=== PATIENT | female | born 1995 | race Caucasian/White ===

== ENCOUNTER 2022-02-24 19:45 | Outpatient (CLI) | payer BC, SELFPAY ==
--- NOTE | 2022-03-10 08:58 | W.PM.SLEEP ---
Sleep Study Details Details Interpreting Provider: Patrick Hogue MD Date of Sleep Study: 02/24/22 Sleep Study Details: STUDY TYPE:? Home ? BMI:? 37.6 ORDERING PROVIDER:? Tae INDICATION:? Concerns about sleep apnea ? SLEEP SUMMARY:? 486.8 minutes monitored RESPIRATORY SUMMARY:? AHI 3.9, supine AHI 4.3, right lateral AHI 1.7 Low oxygen 88 Snoring 0.1% PERIODIC LIMB MOVEMENTS OF SLEEP:? Not recorded CARDIAC:? Range 54-104, mean 75.5 IMPRESSION:? This study does not demonstrate clinically significant obstructive sleep apnea RECOMMENDATION: If sleep disorder is suspected then an in-lab study may be indicated.
--- NOTE | 2022-03-25 13:16 | P.SLS_ITS ---
Sleep Study Details Details Interpreting Provider: Patrick Hogue MD Date of Sleep Study: 02/24/22 Sleep Study Details: STUDY TYPE:? Home ? BMI:? 37.6 ORDERING PROVIDER:? Tae INDICATION:? Concerns about sleep apnea ? SLEEP SUMMARY:? 486 minutes RESPIRATORY SUMMARY:? AHI 3.9, supine AHI 4.3, right lateral AHI 1.7 Low oxygen 88 Snoring 0.1% PERIODIC LIMB MOVEMENTS OF SLEEP:? Not recorded CARDIAC:? 54-104, mean 75.5 IMPRESSION:? This study does not demonstrate clinically significant obstructive sleep apnea RECOMMENDATION: If sleep disorder is strongly suspected would recommend an in- lab study followed by a multiple sleep latency test
== END 2022-02-24 19:46 | disposition home or self-care (01) ==
LOC: SLEEP 19:46
PROVIDERS: PCP Family Medicine; Visit Provider Family Medicine
DX: R40.0 Somnolence (principal)
CPT/HCPCS: 95806

== ENCOUNTER 2022-04-16 15:37 | Outpatient (CLI) | payer BC, SELFPAY ==
--- NOTE | 2022-04-16 16:00 | CRLHL7_ITS ---
For Patients: As a result of the Century Cures Act, medical imaging exams and procedure reports are released immediately into your electronic medical record. You may view this report before your referring provider. If you have questions, please contact your health care provider. Indication: Sinusitis. Technique: Noncontrast axial CT of the paranasal sinuses with coronal reformats are provided. No comparisons. Findings: The visualized paranasal sinuses are clear. The ostiomeatal complexes are patent bilaterally. Incidental bilateral jacquie bullosa. The visualized intraorbital contents appear within normal limits. Impression: Unremarkable CT of the paranasal sinuses. Please note that all CT scans at this facility use dose modulation, iterative reconstruction, and/or weight-based dosing when appropriate to reduce radiation dose to as low as reasonably achievable. Dictated by Alejandro Polk MD @ 04/16/2022 5:26:34 PM (Electronically Signed)
== END 2022-04-16 15:38 | disposition home or self-care (01) ==
LOC: CT 15:38
PROVIDERS: PCP Family Medicine; Visit Provider Otolaryngology
DX: J32.9 Chronic sinusitis, unspecified (principal)
CPT/HCPCS: 70486

== ENCOUNTER 2022-06-15 15:36 | Outpatient (CLI) | payer BC, SELFPAY | END 2022-06-15 15:37 | disposition home or self-care (01) | PROVIDERS: PCP Family Medicine; Visit Provider Family Medicine | DX: Z01.818 Encounter for other preprocedural examination (principal) | CPT/HCPCS: 80048; 85025 ==

== ENCOUNTER 2022-07-03 08:43 | Day surgery (SDC) | payer BC, SELFPAY ==
[2022-07-03] VITALS (12 sets, daily range): BP systolic 124–135; BP diastolic 74–86; PULSE 83–107; RESP 14–24; TEMP 36.2–36.9; O2SAT 95–100; BMI 38.1
[2022-07-03] MEDS: OXYMETAZOLINE 0.05% NASAL SPRAY 2 SPRAY NOSTRIL-B (08:22)
[2022-07-03] MEDS: LACTATED RINGERS 1000 ML 1,000 ML 100 ML IV (08:50)
[2022-07-03 09:07] LABS: Ur HCG Qualitative* Negative (Negative)
[2022-07-03] MEDS: SODIUM CHLORIDE 0.9 % (FLUSH) 10 ML SYRINGE IVF (09:25)
[2022-07-03] MEDS: COCAINE HCL 4 % 4 ML SOLUTION NOSTRIL-B (09:52)
[2022-07-03] MEDS: AYR SALINE NASAL GEL 1 APPLIC NOSTRIL-B (09:52)
[2022-07-03] MEDS: BUPIVACAINE 0.5 %/EPI 1:200K 2.5 ML INJECTION (09:52)
[2022-07-03] MEDS: BUPIVACAINE 0.5%/EPINEPHRINE 0.9 MG (30.9 ML) INJECTION (09:56)
[2022-07-03] MEDS: MUPIROCIN 1 GM PACKET 1 APPLIC TOPICAL (09:57)
--- NOTE | 2022-07-03 10:05 | W.ANESCHARGE ---
Anesthesia Charges Start Date/Time Anesthesia Start Date: 07/03/22 Anesthesia Start Time: 09:33 Stop Date/Time Anesthesia Stop Date: 07/03/22 Anesthesia Stop Time: 10:09
--- NOTE | 2022-07-03 10:09 | W.ANESCHARGE ---
Anesthesia Charges Start Date/Time Anesthesia Start Date: 07/03/22 Anesthesia Start Time: 09:33 Stop Date/Time Anesthesia Stop Date: 07/03/22 Anesthesia Stop Time: 10:09
[2022-07-03] MEDS: IBUPROFEN 400 MG TABLET PO (10:50)
[2022-07-03] MEDS: OXYCODONE 5 MG TABLET PO (10:53)
--- NOTE | 2022-07-03 11:14 | W.PM.ENTPROC ---
Procedure Note Date of procedure: 07/03/22 Procedure: Preoperative diagnosis nasal headache deviated septum nasal obstruction inferior turbinate hypertrophy postoperative diagnosis same Procedure nasal septoplasty, submucous partial resection inferior turbinates, endoscopic partial resection right middle turbinate jacquie bullosa Procedure reads under general endotracheal anesthesia patient was prepped draped usual fashion nose decongested with cocaine pledgets and injected. I was able to elevate mucosa over the right area 3 septal deflection on either side of the septal bone and remedial eyes this piece of bone. Was 1st cut with turbinate scissors. The flap was laid back down. A stab incision was made in the anterior of the right inferior turbinate a tunnel created with a [place] dissector. A conservative anterior submucous resection was performed the Coblation was used to cauterize intramurally more posteriorly along the inferior 10%. This was repeated on the left side in identical fashion. The right middle turbinate jacquie was addressed. The 0 degree scope was available for visualization. An incision was made in the mucosa and a tunnel elevated with a [place] dissector. I then infracture the jacquie bone and crushed the remainder of the turbinate. This effectively narrow the turbinate by about 50%. The left middle turbinate was simply crushed. Merocel pack soaked in Bactroban was placed on each side of the nose. The patient procedure well was taken recovery in satisfactory condition. Blood loss less than 50 mL. Surgeon: Patrick Hogue MD
== END 2022-07-03 12:02 | disposition home or self-care (01) ==
LOC: OR 08:44
PROVIDERS: PCP Family Medicine; Visit Provider Otolaryngology
PROC: (CPT 31231; principal; 2022-07-03 09:45)
DX: J34.2 Deviated nasal septum (principal); J34.3 Hypertrophy of nasal turbinates; R51.9 Headache, unspecified
CPT/HCPCS: 30520; 30140; 31240; 160; 81025; A9270; J0330; J1100; J2250; J2405; J2704; J3010; J3490; J7120

== ENCOUNTER 2023-10-19 12:26 | Emergency (ER) | payer BC, SELFPAY ==
[2023-10-19 12:35] VITALS: BP 127/82; PULSE 97; RESP 18; TEMP 35.8; O2SAT 99; BMI 37.6
--- NOTE | 2023-10-19 12:56 | ED.GENADULT ---
HPI - General Adult General Chief complaint: Nausea/Vomiting Stated complaint: vomiting, dizziness, tingling in feet Time Seen by Provider: 10/19/23 12:28 History of Present Illness HPI narrative: has not been feeling good, is prediabetic. today blood sugar was 62 at work, nam passed out, did buy some OTC glucose tablets and drank a pop. has been getting bad sweats, dizzy, nausea, feet red and losing circulation. vomitted in waiting room. sees dr. garcia. has not talked to him in the last month about this but has appointment with him tomorrow. 28-year-old woman presenting to the emergency department with concern of syncope but also just feeling generally unwell and weak over the last couple of weeks. She notes herself to be prediabetic. Has been carefully monitoring her blood sugars probably checking around 3 maybe 4 times a day. This is often in the morning where she is low in 50 she says. She checks partly because her mother is diabetic. She has been feeling generally weak, shaky in somewhat nauseated over the last couple of weeks. Today was sitting at work got to feeling hot and diaphoretic and then nauseated and went the bathroom to vomit. Her boss I believe was attending to her. She passed out she thinks for about 10 seconds following this emesis. Further questioning reveals long history of gastrointestinal problems weeks for couple of years. Has had extensive evaluation apparently with [facility]. there were some polyps noted on an upper endoscopy. History does show GERD and esophageal dysmotility in diagnosis otherwise. Lately also her feet have been looking redder or feeling like she is losing circulation this is bilateral. She notes that bilaterally also tends to swell quite a bit in her leg she feels. Does spend the majority of her work day on her feet. She says she always feels thirsty and has been trying to hydrate with water or Pedialyte. She thinks she feels like this because her blood sugar is low but also if she tries to eat more sugar she becomes more nauseated and crampy. Has an appointment with primary care provider in 2 days to discuss some of this. She feels particularly bad when she would go to drink alcohol. Other concerns include dry skin or deep cracks in her skin indicating the callused areas. She does pumice daily She admits that has been urinating maybe 10 times at night but only small amount out. No dysuria apparently. She is just concerned that should be evaluated more generally and for diabetes. Further questions about diet and other lifestyle -- does work long hours often 16 hour shifts. Does not get much sleep usually 3-4 hours she says she averages. Often will go good portions the day without eating. Related Data Home Medications ?Medication ?Instructions ?Recorded ?Confirmed etonogestrel 68 mg subdermal 1 implant subdermal ONCE 02/02/22 01/12/23 implant (Nexplanon) omeprazole 20 mg capsule,delayed 20 mg PO QDAY 02/02/22 01/12/23 release Previous Rx's ?Medication ?Instructions ?Recorded azelastine 137 mcg (0.1 %) nasal 1 spray intranasal BID #30 mL 10/13/23 spray Allergies Allergy/AdvReac Type Severity Reaction Status Date / Time penicillin V Allergy Severe Gastrointestinal Verified 01/12/23 09:20 Upset Review of Systems Status of ROS: Reports: 6 or more systems reviewed and unremarkable except as noted in History and below PFSH FOR[facility] Medical History Allergic rhinitis ?J30.9 - Allergic rhinitis, unspecified (ICD-10) Obsessive-compulsive disorder (04/29/14) ?F42.9 - Obsessive-compulsive disorder, unspecified (ICD-10) Major depressive disorder, single episode, moderate (05/11/16) ?F32.1 - Major depressive disorder, single episode, moderate (ICD-10) Esophageal dysmotility ?K22.4 - Dyskinesia of esophagus (ICD-10) GERD (gastroesophageal reflux disease) ?K21.9 - Gastro-esophageal reflux disease without esophagitis (ICD-10) Daytime somnolence ?R40.0 - Somnolence (ICD-10) Surgical History History of hip surgery ?Z98.890 - Other specified postprocedural states (ICD-10) Hx of elbow surgery ?Z98.890 - Other specified postprocedural states (ICD-10) Family History Father Obstructive sleep apnea Melanoma Mother Diabetes Social History Narrative: Single, no kids, 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 NAD. Seems a little fatigued. Head is atraumatic. Cranial nerves 2-12 are intact. Pupils are equal in briskly reactive accommodating. Lungs are clear. Skin is warm and dry without rash. She appears well-perfused peripherally. Toes are little pink. There is trace dependent edema in the lower extremities. Prominent heel calluses and MTP calluses. Both with some cracks in these calluses. No inflammatory changes otherwise. Has a large scar on the right left forearm. Tattoos on bilateral forearms and left posterior shoulder area. Heart in elevated rate but regular rhythm without murmur or gallop appreciated. Abdomen is overweight soft nontender. Oropharynx is moist without erythema. Const: Vital Signs, click to edit/add: Vital Signs - 24 hr 10/19/23 12:35 10/19/23 13:27 10/19/23 14:21 Temperature 96.4 F L Pulse Rate [Pulse Oximeter] 97 Pulse Rate [orthos tatic lying] 97 Pulse Rate [orthos tatic sitting] 105 H Pulse Rate [orthos tatic standing] 107 H Respiratory Rate 18 Blood Pressure [Ri ght Upper Arm] 127/82 Blood Pressure [or thostatic lying] 133/88 Blood Pressure [or thostatic sitting] 144/95 H Blood Pressure [or thostatic standing ] 135/88 Pulse Oximetry 99 98 Oxygen Delivery Me thod Room Air 10/19/23 14:59 Temperature Pulse Rate [Pulse Oximeter] 99 Pulse Rate [orthos tatic lying] Pulse Rate [orthos tatic sitting] Pulse Rate [orthos tatic standing] Respiratory Rate 16 Blood Pressure [Ri ght Upper Arm] 127/63 Blood Pressure [or thostatic lying] Blood Pressure [or thostatic sitting] Blood Pressure [or thostatic standing ] Pulse Oximetry 99 Oxygen Delivery Me thod Room Air Documenting provider has reviewed patient's vital signs: yes Course Vital Signs Vital signs: Initial Vital Signs Temperature 96.4 F L 10/19/23 12:35 Temperature Source Temporal Artery Scan 10/19/23 12:35 Pulse Rate 97 10/19/23 12:35 Respiratory Rate 18 10/19/23 12:35 Blood Pressure 127/82 10/19/23 12:35 Blood Pressure Mean 97 10/19/23 12:35 Pulse Oximetry 99 10/19/23 12:35 Oxygen Delivery Method Room Air 10/19/23 12:35 Vital Signs Temperature 96.4 F L 10/19/23 12:35 Pulse Rate 97 10/19/23 12:35 Respiratory Rate 18 10/19/23 12:35 Blood Pressure 127/82 10/19/23 12:35 Pulse Oximetry 99 10/19/23 12:35 Oxygen Delivery Method Room Air 10/19/23 12:35 Temperature 96.4 F L 10/19/23 12:35 Pulse Rate 99 10/19/23 14:59 Respiratory Rate 16 10/19/23 14:59 Blood Pressure 127/63 10/19/23 14:59 Pulse Oximetry 99 10/19/23 14:59 Oxygen Delivery Method Room Air 10/19/23 14:59 Medications Administered Medications: Discontinued Medications Generic Name Dose Route Start Last Admin Trade Name Juanitoq PRN Reason Stop Dose Admin Sodium Chloride 1,000 mls @ 1,000 mls/hr 10/19/23 13:16 10/19/23 15:00 0.9 % Sodium Chloride 1000 Ml IV 10/19/23 14:15 Infused .Q1H ONE Infusion Medical Decision Making [facility] Narrative Medical decision making narrative: Would want to make sure she does not have a urinary tract infection. Frequency might be simply a consequence of her pushing fluids so as well. Can check basic labs. Would screen also for COVID. Monitor on traffic monitor specialist. EKG for potential arrhythmia here. Does sound to have been a vasovagal event. Will collect labs also although in anticipation of visit with primary care provider soon. Hopefully these can be helpful for the visit. Does not have clear Raynaud's. Has not had out of control diabetes to the point that would suggest peripheral neuropathy. Consider checking vitamin levels as well due to generalized fatigue. Fatigue though might be related to being over worked and poor sleep. Does try to supplement with probiotics and variety of vitamins. Labs are reassuring. A major question was whether not diagnosis of diabetes can be made. I would say she does not appear to have diabetes from evaluation here today - did hemoglobin A1c as well considering outpatient follow-up. She did receive IV hydration here in the emergency department and otherwise seems to have more energy; looks to be feeling better. CRP was slightly elevated. Have not done an ESR. I suppose some inflammatory or rheumatological condition could explain these chronic symptoms. Most likely this was a vasovagal reaction at least contributing to the syncope. Regarding a number of other symptoms, have only just started workup here. Hopefully this initial laboratory evaluation can be beneficial to primary care. See patient discharge plan for further discussion Medical Records Medical records reviewed: Yes I reviewed the patient's medical records Lab Data Lab results reviewed: Yes I reviewed the patient's lab results Labs: Lab Results 10/19/23 10/19/23 10/19/23 Range/Units 13:17 13:40 13:44 WBC 8.98 (4.50-11.00) K/uL RBC 4.73 (4.00-5.20) m/uL Hgb 14.5 (12.0-16.0) gm/dL Hct 44.5 (33.0-51.0) % MCV 94 (80-100) fL MCH 31 (26-34) pg MCHC 33 (32-36) gm/dL RDW Coeff of Paula 11.8 (11.5-15.5) % Plt Count 311 (140-440) K/uL Neut % (Auto) 58.8 (42.0-72.0) % Lymph % (Auto) 28.5 (20-44) % Hendricks % (Auto) 10.6 (0.0-11.0) % Eos % (Auto) 1.3 (0.0-7.0) % Baso % (Auto) 0.6 (0.0-3.0) % Neut # (Auto) 5.28 (1.7-7.0) K/uL Lymph # (Auto) 2.56 (0.90-2.90) K/uL Hendricks # (Auto) 1.00 H (0.00-0.90) K/UL Eos # (Auto) 0.12 (0.00-0.50) K/uL Baso # (Auto) 0.05 (0.00-0.30) K/uL Abs Immat Gran (auto) 0.02 (0.00-0.30) K/uL Imm/Tot Granulo (auto) 0.2 % Sodium 137 (135-149) mmol/L Potassium 4.2 (3.6-5.1) mmol/L Chloride 103 (96-114) mmol/L Carbon Dioxide 27 (20-32) mmol/L Anion Gap 7 (7-15) mEq/L BUN 20 (5-24) mg/dL Creatinine 0.8 (0.5-1.5) mg/dL Estimated Creat Clear 102.72 Estimated GFR 104 ml/min Glucose 79 (60-115) mg/dL Hemoglobin A1c 4.9 (0-5.6) % Lactate 1.0 (0.5-1.9) mmol/L Calcium 9.5 (8.4-10.6) mg/dL Magnesium 2.2 (1.5-2.6) mg/dL Total Bilirubin 0.9 (0.1-1.5) mg/dL Direct Bilirubin 0.3 (0.0-0.5) mg/dL AST 25 (12-35) U/L ALT 19 (4-35) U/L Alkaline Phosphatase 96 (40-150) U/L C-Reactive Protein 1.6 H (0.5-1.0) mg/dL NT-Pro-B Natriuret Pep < 20 pg/mL Total Protein 7.6 (6.0-8.3) g/dL Albumin 4.7 (3.3-5.0) g/dL 25-OH Vitamin D Total 42 (30-80) ng/mL TSH 0.946 (0.270-4.20) uIU/mL Urine Color Yellow (Yellow) Urine Appearance Slightly Cloudy A (Clear) Urine pH 6.5 (5.0-8.5) Ur Specific Valders 1.025 (1.000-1.030) Urine Protein Negative (Negative) Urine Glucose (UA) Negative (Negative) Urine Ketones Trace A (Negative) Urine Blood Negative (Negative) Urine Nitrite Negative (Negative) Urine Bilirubin Negative (Negative) Urine Urobilinogen 1.0 (0.2-1.0) Ur Leukocyte Esterase Trace A (Negative) Urine RBC 0-2 (0-2) Urine WBC 0-2 (0-5) Ur Squamous Epith Cells Few (None-Few) Urine Bacteria None (None) SARS-CoV-2 (PCR) Negative SARS-CoV-2 (Negative) Influenza Type A (PCR) Negative PCR FLU A (Negative) Influenza Type B (PCR) Negative PCR FLU B (Negative) Lab Acknowledgement POC Troponin I 0.00 L (0.01-0.04) ng/ml 10/19/23 10/19/23 Range/Units 14:59 15:33 WBC (4.50-11.00) K/uL RBC (4.00-5.20) m/uL Hgb (12.0-16.0) gm/dL Hct (33.0-51.0) % MCV (80-100) fL MCH (26-34) pg MCHC (32-36) gm/dL RDW Coeff of Paula (11.5-15.5) % Plt Count (140-440) K/uL Neut % (Auto) (42.0-72.0) % Lymph % (Auto) (20-44) % Hendricks % (Auto) (0.0-11.0) % Eos % (Auto) (0.0-7.0) % Baso % (Auto) (0.0-3.0) % Neut # (Auto) (1.7-7.0) K/uL Lymph # (Auto) (0.90-2.90) K/uL Hendricks # (Auto) (0.00-0.90) K/UL Eos # (Auto) (0.00-0.50) K/uL Baso # (Auto) (0.00-0.30) K/uL Abs Immat Gran (auto) (0.00-0.30) K/uL Imm/Tot Granulo (auto) % Sodium (135-149) mmol/L Potassium (3.6-5.1) mmol/L Chloride (96-114) mmol/L Carbon Dioxide (20-32) mmol/L Anion Gap (7-15) mEq/L BUN (5-24) mg/dL Creatinine (0.5-1.5) mg/dL Estimated Creat Clear Estimated GFR ml/min Glucose (60-115) mg/dL Hemoglobin A1c (0-5.6) % Lactate (0.5-1.9) mmol/L Calcium (8.4-10.6) mg/dL Magnesium (1.5-2.6) mg/dL Total Bilirubin (0.1-1.5) mg/dL Direct Bilirubin (0.0-0.5) mg/dL AST (12-35) U/L ALT (4-35) U/L Alkaline Phosphatase (40-150) U/L C-Reactive Protein (0.5-1.0) mg/dL NT-Pro-B Natriuret Pep pg/mL Total Protein (6.0-8.3) g/dL Albumin (3.3-5.0) g/dL 25-OH Vitamin D Total (30-80) ng/mL TSH (0.270-4.20) uIU/mL Urine Color (Yellow) Urine Appearance (Clear) Urine pH (5.0-8.5) Ur Specific Valders (1.000-1.030) Urine Protein (Negative) Urine Glucose (UA) (Negative) Urine Ketones (Negative) Urine Blood (Negative) Urine Nitrite (Negative) Urine Bilirubin (Negative) Urine Urobilinogen (0.2-1.0) Ur Leukocyte Esterase (Negative) Urine RBC (0-2) Urine WBC (0-5) Ur Squamous Epith Cells (None-Few) Urine Bacteria (None) SARS-CoV-2 (PCR) (Negative) Influenza Type A (PCR) (Negative) Influenza Type B (PCR) (Negative) Lab Acknowledgement Test Added Test Added POC Troponin I (0.01-0.04) ng/ml Discharge Plan Discharge Clinical Impression: Fatigue, Malaise, Vasovagal syncope Patient Disposition: Home w/ Parent or Adult Condition: Improved Additional Instructions: There are some vitamin levels still pending. You can see this in your medical record and/or follow this up in primary care clinic. It would be a good idea to begin keeping a careful diet diary of everything you eat and drink and when. Of course the amount of sleep you are getting is not enough and will result in you feeling unwell. Would be a good idea to get in a little heart pumping exercise daily. I understand you are on your feet persistently but getting your heart rate up is important as well. This would probably help your circulation as well Need quality and regular sleep, eat quality food and avoid simple carbohydrates. Perhaps some input by alternative medicine specifically Thai medicine might be helpful for you. Continue to stay well-hydrated. I think today you had a vasovagal event and while the reasons for your nausea might be less clear, I think that the vomiting is a reason for the syncope. Prescriptions: No Action Nexplanon 68 mg implant 1 implant subdermal ONCE Rx Instructions: as a single dose omeprazole 20 mg capsule,delayed release(DR/EC) 20 mg PO QDAY azelastine 137 mcg (0.1 %) spray,non-aerosol 1 spray intranasal BID Qty: 30 0RF Rx Instructions: administer into each nostril Follow Up/Referrals: Julius Garcia MD [Primary Care Provider] - Stand Alone Forms: [employer] Info Instructions
[2023-10-19 13:27] VITALS: BP 133/88; BP 135/88; BP 144/95; PULSE 105; PULSE 107; PULSE 97
[2023-10-19 13:39] LABS: Appearance Urine Slightly Cloudy (Clear); Bilirubin Urine Negative (Negative); Blood Urine Negative (Negative); Color Urine Yellow (Yellow); Glucose Urine Negative (Negative); Ketones Urine Trace (Negative); Leukocyte Esterase Urine Trace (Negative); Nitrite Urine Negative (Negative); Protein Urine Negative (Negative); Specific Gravity Urine 1.025 (1.000-1.030); pH Urine 6.5 (5.0-8.5)
[2023-10-19 13:44] LABS: RBC Urine 0-2 (0-2); Squamous Epithelial Cell Urine Few (None-Few); WBC Urine 0-2 (0-5)
[2023-10-19 13:54] LABS: Basophils Absolute Auto 0.05 K/uL (0.00-0.30); Basophils Percent Auto 0.6 % (0.0-3.0); Eosinophils Absolute Auto 0.12 K/uL (0.00-0.50); Eosinophils Percent Auto 1.3 % (0.0-7.0); Hematocrit 44.5 % (33.0-51.0); Hemoglobin* 14.5 gm/dL (12.0-16.0); Immature Granulocytes Abs Auto 0.02 K/uL (0.00-0.30); Immature Granulocytes Pct Auto 0.2 %; Lymphocytes Absolute Auto 2.56 K/uL (0.90-2.90); Lymphocytes Percent Auto 28.5 % (20-44); Mean Corpuscular HGB Conc 33 gm/dL (32-36); Mean Corpuscular Hemoglobin 31 pg (26-34); Mean Corpuscular Volume 94 fL (80-100); Monocytes Percent Auto 10.6 % (0.0-11.0); Neutrophils Absolute Auto 5.28 K/uL (1.7-7.0); Neutrophils Percent Auto 58.8 % (42.0-72.0); Platelet Count* 311 K/uL (140-440); RDW Coefficient of Variation % 11.8 % (11.5-15.5); Red Blood Count 4.73 m/uL (4.00-5.20); White Blood Count* 8.98 K/uL (4.50-11.00)
[2023-10-19 13:56] LABS: Slide Review Reflex No
--- OUTSIDE RECORDS SUMMARY | 2023-10-19 13:57 | XMS_ITS | Referral Summary ---
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 03/16/2019 Active ibuprofen 600 mg oral tablet Take 600 mg by mouth. 09/13/2019 Active Active Problems Problem Noted Date Diagnosed Date Gastroesophageal reflux disease without esophagi tis 06/18/2020 Overview: Body mass index is 37.59 kg/m??. Social History Tobacco Use Types Packs/Day Years Used Date Smoking Tobacco: Former Smokeless Tobacco: Never Alcohol Use Standard Drinks/Week Comments Yes 6 (1 standard drink = 0.6 oz pur e alcohol) Sex and Gender Information Value Date Recorded Sex Assigned at Not on file Gender Identity Not on file Sexual Orientation Not on file Last Filed Vital Signs Vital Sign Reading Time Taken Comments Blood Pressure 130/85 07/22/2021 10:54 AM CDT Pulse 97 07/22/2021 10:54 AM CDT Temperature 36.4 ??C (97.6 ??F) 07/22/2021 1 0:54 AM CDT Respiratory Rate 20 07/22/2021 10:5 4 AM CDT Oxygen Saturation 100% 07/22/2021 10: 54 AM CDT Inhaled Oxygen Concentration - - Weight 117.7 kg (259 lb 7.7 oz) 08/01/2020 9:37 AM CDT Height 170.2 cm (5' 7) 08/01/2020 9:37 AM CDT Body Mass Index 40.64 08/01/2020 9:37 AM CDT Plan of Treatment Not on file Care Teams Die Cutting Machine Operator Relationship Specialty Start Date End Date Chino Dimas [address] [facility] [place] [address] PCP - General 06/18/20
--- OUTSIDE RECORDS SUMMARY | 2023-10-19 13:57 | XMS_ITS | Clinical Summary ---
Author Organization [facility] Address [place], [place] [address] Care Team Providers Care Rn Field Case Manager Name Role Phone Chino Dimas MD Primary Care Provider Allergies Active Allergy Reactions Criticality Noted Date Comments Penicillins Vomiting 09/16/2022 Medications Medication Sig Dispensed Refills Start Date End Date Status ondansetron (ZOFRAN) 4 mg tablet TAKE 1 TO 2 TABLETS BY MOUTH EVERY 8 HOURS NEEDED FOR NAUSEA 07/28/2021 Active pantoprazole (PROTONIX) 40 mg delayed-release tablet Take 40 mg by mouth two times daily. 08/21/2021 Active Hospital, Clinic, or Other Facility Administered Medication Ordered Dose Route Frequency Start Date End Date Status etonogestrel subdermal implant (NEXPLANON) 1 EachIndications:Nexplanon insertion 1 Each Sdrm Q 3 YEARS 03/16/2019 Active Active Problems Problem Noted Date Diagnosed Date Depression, major, single episode, moderate /08/[address] 01/15/2016 Overview: placed 05/30/15 Obsessive compulsive disorder 04/29/2014 Dysmenorrhea 10/08/2010 Immunizations Name Administration Dates Next Due Hepatitis A (Peds) 10/06/2011,10/08/2010 Hepatitis B (Peds) 06/26/1997,1996, 997 Human Papilloma Virus Vaccine 12/31/2011, 011,10/08/2010 Inactivated Polio Vaccine 07/29/2001,04/10/1998, 1996,1996 Influenza, IIV3 (Age 6-35 mos) 12/25/2008 Influenza, IIV3 (Age >=3 years) 03/31/2012,12/16 Influenza, IIV4 02/24/2018,01/15/2016,12/26/2013 MMR 06/23/2004,04/10/1998 Meningococcal Vaccine (Menveo) 12/26/2013 Td (Age >=7 Years) 03/14/2019 Tdap 09/17/2008 Varicella Vaccine 09/17/2008,10/05/1997 Family History Medical History Relation Name Comments Asthma Brother 2 Good Health Father Diabetes Mother Relation Name Status Comments Brother 1 Alive Brother 2 Father Alive Mother Alive Social History Tobacco Use Types Packs/Day Years Used Date Smoking Tobacco: Former Cigarettes 0.3 4.6 0 03/08/2013 - 10/12/2017 Smokeless Tobacco: Never Tobacco Cessation:Counseling Given: Yes Comments:2-3 per day Alcohol Use Standard Drinks/Week Comments Yes 6 (1 standard drink = 0.6 oz pur e alcohol) sometimes PHQ-2 Answer Date Recorded PHQ-2 TOTAL SCORE 4 03/25/2020 Social Connections Answer Date Recorded Frequency of Communication with Friends and Fami ly Not on file 03/08/2021 Financial Resource Strain Answer Date R ecorded Difficulty of Paying Living Expenses Not on file 03/08/2021 Difficulty of Paying Living Expenses Not on file 03/08/2021 Sex and Gender Information Value Date Recorded Sex Assigned at Not on file Gender Identity Not on file Sexual Orientation Not on file Obstetrics History Last Filed Vital Signs Vital Sign Reading Time Taken Comments Blood Pressure 131/78 09/16/2022 11:53 PM CDT Pulse 108 09/16/2022 11:53 PM CDT Temperature 37.1 ??C (98.7 ??F) 09/16/2022 1 1:53 PM CDT Respiratory Rate 18 09/16/2022 11:5 3 PM CDT Oxygen Saturation 95% 09/16/2022 11: 53 PM CDT Inhaled Oxygen Concentration - - Weight 112.2 kg (247 lb 4.8 oz) 023 11:53 PM CDT Height 170.2 cm (5' 7) 09/16/2022 11:5 3 PM CDT Body Mass Index 38.73 09/16/2022 11:53 PM CDT Plan of Treatment Health Maintenance Due Date Last Done Comments HIV for age 15-65 08/09/2011 Hepatitis C screening for age 18-79 2014 12/21/2013 Depression screening for age 12+ 03/20/2021 03/20/2020, 12/15/2019, 12/15/2019, Additional history exists Pap test for age 21-65 03/14/2022 03/14/2019 COVID-19 vaccine series ( season) 2022 04/17/2020, 03/20/2020 BMI (ht and wt on same day) for age 18+ 11/20/2022 11/20/2021, 03/14/2019, 02/24/2018, Additional history exists Influenza for age 9-49 11/07/2023 8, 01/15/2016, 12/26/2013, Additional history exists Tetanus booster 03/14/2029 03/14/2019, 09/17/2008 Tdap Completed 09/17/2008 Pneumococcal series for age 6-64 Aged Out No longer eligible based on patient's age to complete this topic Procedures Procedure Name Priority Date/Time Associated Diagnosis Comments PETS SALESPERSON THIN PREP PAP SCREEN IMAGED Routine 03/14/2019 1:00 AM FUNERAL GREETER Encounter for contraceptive management, unspecified type ANTI HCV Routine 12/21/2013 2:40 PM CDT Tattoo reaction from Last 3 Months or Most Recently Relevant to Health Maintenance Results * PETS SALESPERSON THIN PREP PAP SCREEN IMAGED (03/14/2019 1:00 AM FUNERAL GREETER) Case Report Gynecologic Cytology Report ? Case: [id number] ? Authorizing Provider: ??Chino Dimas, ?? Collected: ? 03/14/2019 0100 ? MD ? [facility] ?Received: ?03/14/2019 1119 ? Clinic ? First Screen: ?Rashard, Kenna ? Pathologist: ? Chuck, Chana Davis, MD ? Specimen: ?PETS SALESPERSON ThinPrep Vial Screening, Cervical ? 03/23/2019 12:59 PM FUNERAL GREETER [employer]-C ENTRAL LABORATORY INTERPRETATION/ RESULT NEGATIVE FOR INTRAEPITHELIAL LESION OR MALIGNANCY (NIL) (none) 03/23/2019 12:59 PM FUNERAL GREETER [facility] R NON-NEOPLASTIC FINDING(S) Parakeratosis 03/23/2019 12:59 PM FUNERAL GREETER [facility] SPECIMEN ADEQUACY Satisfactory for evaluation No endocervical component seen 03/23/2019 12:59 PM FUNERAL GREETER [facility] HPV REQUEST HPV if ASCUS 03/23/2019 12:59 PM FUNERAL GREETER [facility] Date of LMP 03/09/2019 03/23/2019 12:59 PM FUNERAL GREETER [facility] Last Pap Date Unknown 03/23/2019 12:59 PM FUNERAL GREETER [facility] Last Pap Result First Pap/Unknown 12:59 PM FUNERAL GREETER [facility] Abnormal Pap or [place] Bx in last 5 years No 03/23/2019 12:59 PM FUNERAL GREETER [facility] Menstrual Status Regular Periods 03/23/2019 12:59 PM FUNERAL GREETER [facility] [place] Bx Done Today No 03/23/2019 12:59 PM FUNERAL GREETER [facility] Additional Information None given 03/23/2019 12:59 PM FUNERAL GREETER [facility] Comment: Cytology is screened at [facility] - [address], [place] [address] and [facility] - [address], [place] [address] and [facility] - [address] [facility] [place] [address] Interpreted at [facility] - [address], [place] [address] Automated Review Successful 03/23/2019 12:59 PM FUNERAL GREETER [facility] Comment:Specimen processed s uccessfully by automated business relationship manager device, ThinPrep Imaging System, [employer] Note The pap test is a screening technique, not a diagnostic procedure. It is used primarily to screen for squamous cancers and precursor lesions. Published studies have shown that it is subject to both false negative and false positive results. The pap test should not be used as the sole means to diagnose or exclude pre-malignant and malignant lesions. 03/23/2019 12:59 PM FUNERAL GREETER [facility]-C ENTRAL LABORATORY Other (Cervical) Non-Blood / Unknown 03/14/2019 1:00 AM FUNERAL GREETER 03/14/2019 11:19 AM FUNERAL GREETER Chino Dimas MD PATHOLOGY/CYTO LOGY [facility] [address] [place] [address], * ANTI HCV (12/21/2013 2:40 PM CDT) HEPATITIS C ANTIBODY Non-Reacti ve Non-Reacti ve 12/21/2013 8:33 PM CDT [facility] TR[facility] LABORATORY Blood specimen (specimen) BLOOD SPECIMEN / Unknown Venipuncture / Unknown 12/21/2013 2:40 PM CDT 12/21/2013 2:40 PM CDT Narrative [facility] - 12/21/2013 8:33 PM CDT Antibodies to HCV not detected; does not exclude the possibility of exposure to HCV. Rufina Campbell Shaheed SEND OUTS Performing Organization Address [facility] Co de Phone Number [facility] [address] [place] [address], from Last 3 Months or Most Recently Relevant to Health Maintenance Care Teams Rn Field Case Manager Relationship Specialty Start Date End Date Chino Dimas MD [address] [place] [address] PCP - General Family Practice 05/30/15
--- OUTSIDE RECORDS SUMMARY | 2023-10-19 13:57 | XMS_ITS | Clinical Summary ---
Author Organization [facility] Address [address] [place] [address] Care Team Providers Care Hull Grinder Name Role Phone Chino Dimas Primary Care Provider [phone] Allergies No known active allergies Medications Medication Sig Dispensed Refills Start Date End Date Status etonogestreL (NEXPLANON) 68 mg Sdrm implant Inject 1 each under the skin. 03/16/2019 Active ibuprofen 600 mg oral tablet Take 600 mg by mouth. 09/13/2019 Active Active Problems Problem Noted Date Diagnosed Date Gastroesophageal reflux disease without esophagi tis 06/18/2020 Overview: Body mass index is 37.59 kg/m??. Family History Medical History Relation Comments Asthma Brother Diabetes Mother Relation Status Comments Brother Mother Social History Tobacco Use Types Packs/Day Years [...] 08/01/2020 9:37 AM CDT Plan of Treatment Health Maintenance Due Date Last Done Comments Hepatitis C Screening 1996 Pap Smear 1996 Anxiety Screening (MAN-2) 1997 Depression Assessment (PHQ-2) 1997 COVID-19 Vaccine ( season) 2022 04/17/2020, 03/20/2020 Influenza Vaccine (#1) 2023 8, 01/15/2016, 12/26/2013, Additional history exists Adult Tetanus Booster 03/14/2029 03/14/2019, 009 HPV Vaccine Completed 12/31/2011, 01/06, 10/08/2010 Pneumococcal <65 Aged Out No longer e ligible based on patient's age to complete this topic Care Teams Hull Grinder Relationship Specialty Start Date End Date Chino Dimas [address] [place] [address] PCP - General 06/18/20
[2023-10-19] MEDS: 0.9 % SODIUM CHLORIDE 1000 ml 1,000 ML IV (14:00)
[2023-10-19 14:09] LABS: Chloride* 103 mmol/L (96-114); Potassium* 4.2 mmol/L (3.6-5.1); Sodium* 137 mmol/L (135-149)
[2023-10-19 14:10] LABS: Albumin* 4.7 g/dL (3.3-5.0)
[2023-10-19 14:10] LABS: Hemoglobin A1C* 4.9 % (0-5.6)
[2023-10-19 14:12] LABS: Creatinine* 0.8 mg/dL (0.5-1.5); Est. Creatinine Clearance* 102.72; Estimated Glomerular Filt Rate 104 ml/min
[2023-10-19 14:13] LABS: Anion Gap 7 mEq/L (7-15); Aspartate Amino Transferase* 25 U/L (12-35); Bilirubin Direct* 0.3 mg/dL (0.0-0.5); Bilirubin Total* 0.9 mg/dL (0.1-1.5); Blood Urea Nitrogen* 20 mg/dL (5-24); Calcium* 9.5 mg/dL (8.4-10.6); Carbon Dioxide* 27 mmol/L (20-32); Glucose* 79 mg/dL (60-115); Magnesium* 2.2 mg/dL (1.5-2.6); Total Protein* 7.6 g/dL (6.0-8.3)
[2023-10-19 14:14] LABS: Alanine Aminotransferase* 19 U/L (4-35); Alkaline Phosphatase* 96 U/L (40-150)
[2023-10-19 14:16] LABS: C Reactive Protein* 1.6 mg/dL (0.5-1.0)
[2023-10-19 14:21] VITALS: O2SAT 98
[2023-10-19 14:27] LABS: PCR FLU A Negative PCR FLU A (Negative); PCR FLU B Negative PCR FLU B (Negative); SARS PCR* Negative SARS-CoV-2 (Negative)
[2023-10-19 14:31] LABS: NT Pro B Type NatriureticPept* < 20 pg/mL
[2023-10-19 14:43] LABS: Thyroid Stimulating Hormone* 0.946 uIU/mL (0.270-4.20)
[2023-10-19 14:59] VITALS: BP 127/63; PULSE 99; RESP 16; O2SAT 99
[2023-10-19 16:11] LABS: Vitamin D 25 Hydroxy* 42 ng/mL (30-80)
[2023-10-23 12:59] LABS: Vitamin B6 (Pyridoxal 5-Phos) 58.9 nmol/L (20.0-125.0)
[2023-10-25 14:39] LABS: Vitamin B1, Whole Blood 163 nmol/L (70-180)
== END 2023-10-19 15:55 | disposition home or self-care (01) ==
PROVIDERS: Emergency Provider Family Medicine; PCP Family Medicine
DX: R55 Syncope and collapse (principal); R53.83 Other fatigue
CPT/HCPCS: 36415; 80048; 80076; 81001; 82306; 83036; 83605; 83735; 83880; 84207; 84425; 84443; 84484; 85025; 86140; 87086; 87631; 93005; 94761; 99284; J7030

== ENCOUNTER 2024-01-03 17:11 | Outpatient (CLI) | payer BC, SELFPAY ==
--- OUTSIDE RECORDS SUMMARY | 2024-01-03 17:24 | XMS_ITS | Clinical Summary ---
Author Organization [facility] Address [place], [place] [address] Care Team Providers Care Spinning Machine Tender Name Role Phone Chino Dimas MD Primary [...] Diagnosed Date Depression, major, single episode, moderate /0 08/[address] 01/15/2016 Overview (01/15/2016): placed 05/30/15 Obsessive compulsive disorder 04/29/2014 Dysmenorrhea 10/08/2010 Immunizations Name Administration Dates Next Due Hepatitis A (Peds) 10/06/2011,10/08/2010 Hepatitis B (Peds) 06/26/1997,1996, 997 Human Papilloma Virus Vaccine 12/31/2011, 011,10/08/2010 Inactivated Polio Vaccine 07/29/2001,05/1998,1996,10/10 Influenza, IIV3 (Age 6-35 mos) 12/25/2008 Influenza, IIV3 (Age >=3 years) 03/31/2012,12/16 Influenza, IIV4 02/24/2018,01/15/2016,12/26/2013 MENINGOCOCCAL VACCINE 2 VIAL 2MO-55YO (MENVEO) 12/26/2013 MMR 06/23/2004,04/10/1998 Td (Age >=7 Years) 03/14/2019 Tdap 09/17/2008 [...] Pap test for age 21-65 03/14/2022 03/14/2019 BMI (ht and wt on same day) for age 18+ 11/20/2022 11/20/2021, 03/14/2019, 02/24/2018, Additional history exists COVID-19 vaccine series (2023- season) 2023 04/17/2020, 03/20/2020 Influenza for age 9-49 11/07/2023 8, 01/15/2016, 12/26/2013, Additional history exists Tetanus booster 03/14/2029 03/14/2019, 09/17/2008 Tdap Completed 09/17/2008 Pneumococcal series for age 6-64 Aged Out No longer eligible based on patient's age to complete this topic Procedures Procedure Name Priority Date/Time Associated Diagnosis Comments TIRE CHANGER THIN PREP PAP SCREEN IMAGED Routine 03/14/2019 1:00 AM EMAIL CAMPAIGN MANAGER Encounter for contraceptive management, unspecified type ANTI HCV Routine 12/21/2013 2:40 PM CDT Tattoo reaction from Last 3 Months or Most Recently Relevant to Health Maintenance Results * TIRE CHANGER THIN PREP PAP SCREEN IMAGED (03/14/2019 1:00 AM EMAIL CAMPAIGN MANAGER) Case Report Gynecologic Cytology Report ? Case: [id number] ? Authorizing Provider: ??Chino Dimas, ?? Collected: ? 03/14/2019 0100 ? MD ? Ordering Location: ? [facility] ?Received: ?03/14/2019 1119 ? Clinic ? First Screen: ?Rashard, Kenna ? Pathologist: ? Chana Woods, MD ? Specimen: ?TIRE CHANGER ThinPrep Vial Screening, Cervical ? 03/23/2019 12:59 PM EMAIL CAMPAIGN MANAGER [facility]-C ENTRAL LABORATORY INTERPRETATION/ RESULT NEGATIVE FOR INTRAEPITHELIAL LESION OR MALIGNANCY (NIL) (none) 03/23/2019 12:59 PM EMAIL CAMPAIGN MANAGER [facility]TRMI LABORATORY R NON-NEOPLASTIC FINDING(S) Parakeratosis 03/23/2019 12:59 PM EMAIL CAMPAIGN MANAGER [facility] ENTRAL LABORATORY SPECIMEN ADEQUACY Satisfactory for evaluation No endocervical component seen 03/23/2019 12:59 PM EMAIL CAMPAIGN MANAGER [facility] HPV REQUEST HPV if ASCUS 03/23/2019 12:59 PM EMAIL CAMPAIGN MANAGER [facility] Date of LMP 03/09/2019 03/23/2019 12:59 PM EMAIL CAMPAIGN MANAGER [facility] Last Pap Date Unknown 03/23/2019 12:59 PM EMAIL CAMPAIGN MANAGER [facility] Last Pap Result First Pap/Unknown 12:59 PM EMAIL CAMPAIGN MANAGER [facility] ENTRAL LABORATORY Abnormal Pap or [place] Bx in last 5 years No 03/23/2019 12:59 PM EMAIL CAMPAIGN MANAGER [facility] Menstrual Status Regular Periods 03/23/2019 12:59 PM EMAIL CAMPAIGN MANAGER [facility] [place] Bx Done Today No 03/23/2019 12:59 PM EMAIL CAMPAIGN MANAGER [facility] Additional Information None given 03/23/2019 12:59 PM EMAIL CAMPAIGN MANAGER [facility] Comment: Cytology is screened at [facility] - [address], [place] [address] [facility] - [address] [place] [address] and [facility] - [address] [place] [address] Interpreted at [facility] - [address], [place] [address] Automated Review Successful 03/23/2019 12:59 PM EMAIL CAMPAIGN MANAGER [facility] Comment:Specimen processed s uccessfully by automated finishing frame runner device, ThinPrep Imaging System, [email or web address] Note The pap test is a screening technique, not a diagnostic procedure. It is used primarily to screen for squamous cancers and precursor lesions. Published studies have shown that it is subject to both false negative and false positive results. The pap test should not be used as the sole means to diagnose or exclude pre-malignant and malignant lesions. 03/23/2019 12:59 PM EMAIL CAMPAIGN MANAGER [facility]-C ENTRAL LABORATORY Other (Cervical) Non-Blood / Unknown 03/14/2019 1:00 AM EMAIL CAMPAIGN MANAGER 03/14/2019 11:19 AM EMAIL CAMPAIGN MANAGER Chino Dimas MD PATHOLOGY/CYTO LOGY Performing Organization Address City/[facility]/ZIP Co de Phone Number [facility] [address] [place] [address], [place] * ANTI HCV (12/21/2013 2:40 PM CDT) HEPATITIS C ANTIBODY Non-Reacti ve Non-Reacti ve 12/21/2013 8:33 PM CDT [facility] TRAL LABORATORY Blood specimen (specimen) BLOOD SPECIMEN / Unknown Venipuncture / Unknown 12/21/2013 2:40 PM CDT 12/21/2013 2:40 PM CDT Narrative [facility] - 12/21/2013 8:33 PM CDT Antibodies to HCV not detected; does not exclude the possibility of exposure to HCV. Rufina Campbell Shaheed SEND OUTS Performing Organization Address [facility] Co de Phone Number [facility] [address] [place] [address], from Last 3 Months or Most Recently Relevant to Health Maintenance Care Teams Spinning Machine Tender Relationship Specialty Start Date End Date Chino Dimas MD [address] [place] [address] PCP - General Family Practice 05/30/15
--- OUTSIDE RECORDS SUMMARY | 2024-01-03 17:25 | XMS_ITS | Referral Summary ---
Author Organization [facility] Address [address] [place] [address] Care Team Providers Care Clinical Application Manager Name Role Phone Chino Dimas Primary Care Provider [phone] Allergies No known active allergies Medications Medication Sig Dispensed Refills Start Date End Date Status etonogestreL (NEXPLANON) 68 mg Sdrm implant Inject 1 each under the skin. 03/16/2019 Active ibuprofen 600 mg oral tablet Take 600 mg by mouth. 09/13/2019 Active Active Problems Problem Noted Date Diagnosed Date Gastroesophageal reflux disease without esophagi tis 06/18/2020 Overview (06/18/2020): Body mass index is 37.59 kg/m??. Social [...] of Treatment Not on file Care Teams Clinical Application Manager Relationship Specialty Start Date End Date Chino Dimas [address] [facility] [place] [address] PCP - General 06/18/20
--- OUTSIDE RECORDS SUMMARY | 2024-01-03 17:25 | XMS_ITS | Clinical Summary ---
Author Organization [facility] Address [address] [place] [address] Care Team Providers Care Pharm Spec Name Role Phone Chino Dimas Primary Care Provider [phone] Allergies No known active allergies Medications Medication Sig Dispensed Refills Start Date End Date Status etonogestreL (NEXPLANON) 68 mg Sdrm implant Inject 1 each under the skin. 03/16/2019 Active ibuprofen 600 mg oral tablet Take 600 mg by mouth. 09/13/2019 Active Active Problems Problem Noted Date Diagnosed Date Gastroesophageal reflux disease without esophagi tis 06/18/2020 Overview (06/18/2020): Body mass index is 37.59 kg/m??. Family [...] Assessment (PHQ-2) 1997 COVID-19 Vaccine ( season) 2023 04/17/2020, 03/20/2020 Influenza Vaccine (#1) 2023 8, 01/15/2016, 12/26/2013, Additional history exists Adult Tetanus Booster 03/14/2029 03/14/2019, 009 RSV Vaccines (1 - 1-dose 75+ series) 08/09/2071 HPV Vaccine Completed 12/31/2011, 01/06, 10/08/2010 Pneumococcal <65 Aged Out No longer e ligible based on patient's age to complete this topic Care Teams Pharm Spec Relationship Specialty Start Date End Date Chino Dimas [address] [facility] [place] [address] PCP - General 06/18/20
== END 2024-01-03 17:12 | disposition home or self-care (01) ==
LOC: FBOREF 17:21
PROVIDERS: PCP Family Medicine; Visit Provider Family Medicine
DX: Z12.4 Encounter for screening for malignant neoplasm of cervix (principal)
CPT/HCPCS: 87624; 87625; 88141; 88142

== ENCOUNTER 2024-03-23 15:20 | Outpatient (CLI) | payer BC, SELFPAY ==
--- NOTE | 2024-03-23 15:30 | MR_ITS ---
[facility] [address] [facility] [address] Phone:?[phone] Fax:?[phone] Referring Physician Information: Kerwin Viveros M.D. [address] [address] Phone:?[phone] Fax:?[phone] Patient:Ly Zaman D.O.B:?1995 Sex:?Female Phone:?[phone] [facility] MRN:?[id number] Exam Date:?03/23/2024 EXAM: MRI of the RIGHT WRIST, without contrast CLINICAL HISTORY: Ongoing right wrist pain. Evaluate for ganglion cyst or tenosynovitis. COMPARISONS: None available. TECHNICAL: MR sequences of the right wrist were obtained: coronals: T1, PD FS, T2 3-D sagittals: PD FS axials: PD, PD FS Sedation: None Contrast: None FINDINGS: Joints and osseous structures: No fracture or destructive osseous lesion is seen. No subluxation, dislocation, or erosive change is seen. TFCC: The central portion of the triangular fibrocartilage disc appears somewhat ill- defined and attenuated, which may reflect suboptimal technique including magic angle artifact and suboptimal [id number] although fraying/attritional change is not excluded. No evidence of discrete fluid intense traumatic-type tear of the triangular fibrocartilage. The proximal and distal laminae of the ulnar attachment are intact. The volar and dorsal radioulnar ligaments are intact. Ligaments: Scapholunate: The scapholunate ligament appears intact but isn't optimally evaluated because of suboptimal technique/suboptimal [id number]. Lunotriquetral: No evidence of tear on this nonarthrogram study. No offset of the lunotriquetral interval. Tendons: Flexors: Intact without tendinopathy or tenosynovitis. Extensors: ECU & 6th extensor compartment: Intact without scottie tendinopathy tear or longitudinal splitting. Extensor retinaculum and fibrous subsheath appear intact without demonstrable subsheath injury or nonphysiologic ECU displacement. 1st - 5th extensor compartments: Marked extensor digitorum and indices tenosynovitis. Neurovascular: Median: Unremarkable carpal tunnel without convincing neuritis or intrinsic/extrinsic masses. Ulnar: Unremarkable Guyon's canal without intrinsic/extrinsic masses. Ganglia: No ganglion is identified. IMPRESSION: 1. Marked extensor digitorum and indices tenosynovitis. 2. The central portion of the triangular fibrocartilage disc appears somewhat ill-defined and attenuated, which may reflect suboptimal technique including magic angle artifact and suboptimal [id number] although fraying/attritional change is not excluded. No evidence of discrete fluid intense traumatic-type tear of the triangular fibrocartilage. Findings are of uncertain clinical significance. RCB Electronically signed on 03/24/2024 9:01:00 AM by Pelon Moreno M.D.
== END 2024-03-23 15:21 | disposition home or self-care (01) ==
LOC: MRI 15:22
PROVIDERS: PCP Family Medicine; Visit Provider Orthopaedic Surgery
DX: M25.531 Pain in right wrist (principal); M65.88 Other synovitis and tenosynovitis, other site; M67.441 Ganglion, right hand
CPT/HCPCS: 73221

== ENCOUNTER 2024-05-23 09:25 | Outpatient (CLI) | payer BC, SELFPAY | END 2024-05-23 09:26 | disposition home or self-care (01) | LOC: FBOREF 09:26 | PROVIDERS: PCP Family Medicine; Visit Provider Family Medicine | DX: M65.931 Unspecified synovitis and tenosynovitis, right forearm (principal); Z01.818 Encounter for other preprocedural examination | CPT/HCPCS: 80048; 85025 ==

== ENCOUNTER 2024-06-02 06:12 | Day surgery (SDC) | payer BC, SELFPAY ==
[2024-06-02 06:20] VITALS: BP 124/76; PULSE 98; RESP 18; TEMP 36.8; O2SAT 100; BMI 37.9
[2024-06-02] MEDS: LACTATED RINGERS 1000 ML 1,000 ML 100 ML IV (06:40)
[2024-06-02] MEDS: SODIUM CHLORIDE 0.9 % (FLUSH) 10 ML SYRINGE IVF (06:40)
[2024-06-02 06:52] LABS: Ur HCG Qualitative* Negative (Negative)
--- NOTE | 2024-06-02 07:24 | W.PM.H&PU ---
History & Physical Update History & Physical Update H&P Reviewed and patient assessed: No changes noted
--- NOTE | 2024-06-02 07:24 | PM.ORPRC ---
Procedure Note Date of procedure: 06/02/24 Procedure: PREOPERATIVE DIAGNOSIS: 1. Right wrist extensor tenosynovitis POSTOPERATIVE DIAGNOSIS: 1. Right wrist extensor tenosynovitis PROCEDURE: 1. Right wrist extensor tenosynovectomy SURGEON: Jalil Viveros MD. [employer] OPERATOR HELPER: Bianca Bedolla P.A.-C. - An equity sales assistant was critical for this case to aid in patient positioning, tissue retraction, limb manipulation/positioning, and wound closure. ANESTHESIA: Local with monitored anesthesia care TOURNIQUET: 38 minutes at 225 mmHg ESTIMATED BLOOD LOSS: 2 mL COMPLICATIONS: None SPECIMENS: Hypertrophic tenosynovium sent for pathology INDICATIONS: The patient is a pleasant 28-year-old female with history of right dorsal wrist pain and swelling. Symptoms do not improve with conservative treatment. MRI revealed extensive tenosynovitis involving the extensor digitorum and indices. Due to failure of non operative management, patient was offered surgical intervention consisting of extensor tenosynovectomy to remove the soft tissue mass and improve pain and function of the wrist. FINDINGS: Thickened, hypertrophic tenosynovium involving the extensor tendons of the 4th dorsal compartment distal to the extensor retinaculum. Extensor tendons were intact and normal in appearance. DESCRIPTION OF PROCEDURE: Patient seen preoperatively and operative site was marked. She was then brought to the operative room placed in supine position or table. Monitored anesthesia care was administered by anesthesia staff and patient was given IV Ancef preoperatively for prophylaxis. A tourniquet placed on the patient's right forearm and right upper extremity was prepped and draped in usual sterile fashion. A surgical time-out was performed confirming patient identity, surgical site, and surgical procedure. Subcutaneous tissues over the dorsal aspect of the right hand and wrist were injected with a combination of 1% lidocaine with epinephrine and 0.25% bupivacaine. A longitudinal incision measuring approximately 5 cm was then made over the dorsal aspect of the hand and wrist centered over the soft tissue mass. Incision was carried through subcutaneous tissues. Interval between the subcutaneous fat and the fascia was developed exposing the underlying tenosynovium and extensor tendons. Hypertrophic synovium was noted to surround the EDC and extensor indices tendons distal to the extensor retinaculum. This synovial tissue was dissected away from the tendons Metzenbaum scissors and removed. Tissue was sent to pathology for confirmation of diagnosis. The distal edge of the extensor retinaculum was released approximately 1 cm and retracted back, and no tenosynovitis was noted deep to the extensor retinaculum. The extensor tendons were intact and normal appearance. There was no involvement of the other extensor tendons. After after the hypertrophic tenosynovium had been removed from the 4th dorsal compartment tendons, the wound was irrigated with copious amounts of normal saline. The extensor retinaculum was repaired with 0 Vicryl [id number] interrupted sutures. Tourniquet was released. Total tourniquet time was 38 minutes. Hemostasis was achieved with bipolar electrocautery. Wound was again irrigated normal saline. Skin incision was closed with 2-0 Vicryl inverted interrupted subcutaneous stitches and 2-0 Stratafix running subcuticular stitch followed by Dermabond. Sterile dressing was applied followed by the application of a short-arm volar splint which immobilized the MCP joints in an extended position and allowed for flexion and extension of the interphalangeal joints. Patient was then woken from anesthesia and transferred to the recovery room in stable condition. PLAN: 1. Keep splint clean and dry. Frequent flexion and extension of the fingers is encouraged 2. Ice and elevation for pain and swelling. 3. Tylenol and/or ibuprofen as needed for pain control. Tramadol for more severe pain. 4. Follow-up in Orthopedic Clinic for splint removal and wound check in 10-14 days. 5. Initiate occupational therapy for finger range of motion, strengthening, and edema control in approximately 2 weeks.
[2024-06-02] MEDS: CEFAZOLIN 2 GM INJ IVP (07:33)
[2024-06-02] MEDS: LIDOCAINE 1%-EPI 1:100,000 20 ML INFILTRATI (07:49)
[2024-06-02] MEDS: BUPIVACAINE 0.25% 30 ML INJECTION (07:49)
[2024-06-02 08:55] VITALS: BP 135/86; PULSE 89; RESP 16; TEMP 36.2; O2SAT 100
[2024-06-02 09:00] VITALS: BP 143/86; PULSE 95; RESP 16; O2SAT 99
[2024-06-02 09:15] VITALS: BP 133/77; PULSE 98; RESP 16; O2SAT 100
[2024-06-02] MEDS: IBUPROFEN 200 MG TABLET 400 MG PO (09:23)
[2024-06-02 09:30] VITALS: BP 138/89; PULSE 101; RESP 16; O2SAT 100
--- NOTE | 2024-06-02 09:37 | W.ANESCHARGE ---
Anesthesia Charges Start Date/Time Anesthesia Start Date: 06/02/24 Anesthesia Start Time: 07:26 Stop Date/Time Anesthesia Stop Date: 06/02/24 Anesthesia Stop Time: 08:57 Coding CPT Codes CPT Codes: ANESTH LOWER ARM SURGERY - 90996 ([id number]) P2 - PATIENT W/MILD SYST DISEASE, QZ - GOLF BALL WINDER SVC W/O WATER FABRICATOR OPERATOR BY
--- NOTE | 2024-06-02 09:37 | P.ANES_ITS ---
Anesthesia Charges Start Date/Time Anesthesia Start Date: 06/02/24 Anesthesia Start Time: 07:26 Stop Date/Time Anesthesia Stop Date: 06/02/24 Anesthesia Stop Time: 08:57 Coding CPT Codes CPT Codes: ANESTH LOWER ARM SURGERY - 39701 ([id number]) P2 - PATIENT W/MILD SYST DISEASE, QZ - MERCHANDISER SVC W/O FILM TESTS CHECKER BY
[2024-06-02 09:45] VITALS: BP 134/87; PULSE 99; RESP 16; O2SAT 100
== END 2024-06-02 10:06 | disposition home or self-care (01) ==
LOC: OR 06:13
PROVIDERS: Nurse Anesthetist, Certified Registered; PCP Family Medicine; Visit Provider Orthopaedic Surgery
PROC: (CPT 64721; principal; 2024-06-02 07:30)
DX: M65.831 Other synovitis and tenosynovitis, right forearm (principal)
CPT/HCPCS: 25116; 01810; 81025; 88305; A9270; J0665; J0690; J2250; J2405; J2704; J3010; J3490; J7120

== ENCOUNTER 2024-06-27 12:30 | Outpatient (RCR) | payer BC, SELFPAY ==
--- NOTE | 2024-06-14 15:29 | OT.OPOE ---
OT Outpatient Ortho Eval OT Outpatient Ortho Eval* Start: 06/14/24 07:00 Freq: Status: Active Protocol: Document 06/14/24 14:12 CSS (Rec: 06/14/24 15:24 CSS [id number]) E-signed By Cira Corbett, OTR/L OT OP Ortho Eval Details Complexity Complexity Low Insurance Information Insurance Information [employer] Outpatient History/Precautions Current Condition/Medical Diagnosis Referring Provider Dr. Viveros Medical Diagnoses M65.931- unspecified synovitis and tenosynovitis, right forearm Treatment Diagnosis m79.641- pain in hand (R) m25.331- wrist instability (R) m25.341- hand instability (R) Date of Onset 06/02/24- surgery Medical/Functional History Medical History Reviewed Yes Prior Level of Function/Mobility Approx 6 months pt noticed cyst; she notes having to have it drained, getting corotzone shot and now having cyst removed. Carpal tunnel in R wrist- 2021 R wrist tendonitis 2023- now Pt had sutures removed . 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 Pain Assessment Pain Pain Yes Pain Comments pain in R 2nd digit when bump it; no pain at incision site 10: R 2nd digit Range of Motion and Strength Wrist Range of Motion and Strength Wrist Range of Motion and Strength R: flexion: 47 extension: 17 L: WNL Hand/Finger/Thumb Range of Motion and Strength Hand/Finger/Thumb Range of Motion and R digits: Strength 2nd finger: MCP: 9 3rd finger: MCP: 30 4th finger: MCP: 38 5th finger: MCP: 50 Hand Pinch/Material Requirements Worker Strength Hand Pinch/Material Requirements Worker Strength Hand Pinch/Material Requirements Worker Strength Left Hand,Right Hand Left Hand Material Requirements Worker Strength Position 1 in Elbow 67 Flexion (lbs) Lateral Pinch Strength (lbs) 20 Right Hand Material Requirements Worker Strength Position 1 in Elbow 23 Flexion (lbs) Lateral Pinch Strength (lbs) 12 Dexterity Dexterity Dexterity Left Hand,Right Hand Left Hand Scoring Times 9-Hole Peg Hand Test Scoring Time ( 23 seconds) Right Hand Scoring Times 9-Hole Peg Hand Test Scoring Time ( 21 seconds) OT Problems Problems Problems Decreased Strength,Decreased Range of Motion,Pain,Lifting, Gripping,Pinching Problems Comments opening doors are challenging Other Problems Writing,Opening Containers, Dressing Patient Potential Excellent Assessment Assessment Assessment Pt is a 28 year old female who is referred to OT after right wrist extensor tenosynovectomy on 06/02/[address] Viveros. Pt currently experiencing symptoms of pain, limited ROM, and weakness in her R hand/wrist. Current symptoms are impacting pt's indep with ADLs/IADLs. Pt would benefit from skilled OT to help with edema management, pain management, increase ROM and strength to promote functional use of RUE. Occupational Therapy Treatment Plan - OP Potential Rehabilitation Potential Excellent Set Goals Goals Set with Patient Yes Goals Goals Goals to be met by September 06, 2024: 1) Pt will return to prior level functional status with RUE. 2) Pt will increase R coffin maker strength to 60# or more in order to promote function in RUE. 3) Pt will increase R lateral pinch strength to 20# or more in order to promote function in RUE. 4) Pt will verbalize decrease of pain to 3/10 with activities (specifically with gripping) in 2 consistent sessions or more. 5) Pt will verbalize compliance of HEP in order to progress towards goals. Treatment Plan Treatment Plan Evaluation,Edema Control, Iontophoresis with Dexamethasone Sodium Phosphate 1 mL (4mg per mL),Joint Mobilization,Manual Therapy, Splinting,Ultrasound,Wound Care/Scar Management, Therapeutic Exercise, Therapeutic Activities,Self Care/Home Management,R D Intern Training,Education Expected Frequency 1-2x Week Expected Duration 12 weeks Home Program Home Program Home Program Initiated Home Program Specifics AAROM/AROM of wrist; ice; compression sleeve(tubi coffin maker); yellow resistive foam piece Certification Certification Statement I Certify That: Therapy Services Provided, Therapy Plan Established, Therapy Plan Reviewed Certification Information Clinic ID # [id number] Initial Certification Date 06/14/24 Recertification Due Date 09/06/24 Provider Signature Required Yes Provider Signature Shows Agreement With POC & Medical Necessity Physician NPI Number Write NPI# Here Physician Comment/Change Comment or Changes Physician Signature & Date Requested Please Sign/Date Here
--- NOTE | 2024-08-03 15:26 | REH.OT ---
Pt has no showed last 3 scheduled OT appts. Will d/c pt from OT at this time due to no shows.
== END 2024-08-03 17:00 | disposition home or self-care (01) ==
PROVIDERS: PCP Family Medicine; Visit Provider Orthopaedic Surgery
DX: M65.931 Unspecified synovitis and tenosynovitis, right forearm (principal); Z51.89 Encounter for other specified aftercare
CPT/HCPCS: 97035; 97110; 97165; 97535; X5282